=== PATIENT | male | born 1975 | race African-American/Black ===

== ENCOUNTER 2016-06-26 18:41 | Emergency (ER) | payer SELFPAY ==
[2016-06-26] MEDS ORDERED: Sodium Chloride 0.9% 1,000 ML IV ONE (19:13)
--- NOTE | 2016-06-26 19:27 | EDM.PDOC ---
ED HPI GENERAL MEDICAL PROBLEM - General Chief Complaint: Flank Pain Stated Complaint: KIDNEY PAIN Time Seen by Provider: 06/26/16 19:15 Source of Information: Reports: Patient History Limitations: Reports: No limitations - History of Present Illness INITIAL COMMENTS - FREE TEXT/NARRATIVE: History of present illness: [40-year-old male comes in complaining of bilateral flank pain indicated that it started going to the back and has gotten worse. Also indicates that his urine is very concentrated.] Review of systems: As per history of present illness and below otherwise all systems reviewed and negative. Past medical history: As per history of present illness and as reviewed below otherwise noncontributory. Surgical history: As per history of present illness and as reviewed below otherwise noncontributory. Social history: No reported history of drug or alcohol abuse. Family history: As per history of present illness and as reviewed below otherwise noncontributory. Physical exam: HEENT: Atraumatic, normocephalic, pupils reactive, negative for conjunctival pallor or scleral icterus, mucous membranes moist, throat clear, neck supple, nontender, trachea midline. Lungs: Clear to auscultation, breath sounds equal bilaterally, chest nontender. Heart: S1S2, regular, negative for clicks, rubs, or JVD. Abdomen: Soft, nondistended, nontender. Negative for masses or hepatosplenomegaly. Negative for costovertebral tenderness. Pelvis: Stable nontender. Genitourinary: Deferred. Rectal: Deferred. Extremities: Atraumatic, negative for cords or calf pain. Neurovascular unremarkable. Neuro: Awake, alert, oriented. Cranial nerves II through XII unremarkable. Cerebellum unremarkable. Motor and sensory unremarkable throughout. Exam nonfocal. Diagnostics: [EC, CMP, troponin, CT of abdomen without contrast] Therapeutics: [] Impression: [Low back pain] Plan: [Muscle relaxers person steroids OTC pain meds] Definitive disposition and diagnosis as appropriate pending reevaluation and review of above. bilateral flank Pain Score (Numeric/FACES): 8 - Related Data Allergies Allergy/AdvReac Type Severity Reaction Status Date / Time No Known Allergies Allergy Verified 06/26/16 19:07 Home Meds: Home Meds Orphenadrine [Norflex] 100 mg PO BID #28 tab.er 06/26/16 [Rx] methylPREDNISolone [Medrol] 4 mg PO DAILY #21 tab.ds.pk 06/26/16 [Rx] ED ROS GENERAL - Review of Systems Review Of Systems: See Below (See history of present illness) ED EXAM, GENERAL - Physical Exam Exam: See Below (See history of present illness) Course - Vital Signs Last Recorded V/S: Last Vital Signs Temp 36.1 C 06/26/16 19:08 Pulse 102 H 06/26/16 19:08 Resp 16 06/26/16 19:08 BP 147/76 H 06/26/16 19:08 Pulse Ox 100 06/26/16 19:08 - Orders/Labs/Meds Orders: Active Orders 24 hr Category Date Time Status Abdomen Pelvis w Cont [CT] Stat Exams 06/26/16 19:49 Stop Req Abdomen Pelvis wo Cont [CT] Stat Exams 06/26/16 19:55 Taken Labs: Laboratory Tests 06/26/16 06/26/16 06/26/16 Range/Units 19:10 19:15 19:15 WBC 7.65 (4.0-11.0) K/uL RBC 5.23 (4.50-5.90) M/uL Hgb 15.9 (13.0-17.0) g/dL Hct 46.1 (38.0-50.0) % MCV 88.1 (80.0-98.0) fL MCH 30.4 (27.0-32.0) pg MCHC 34.5 (31.0-37.0) g/dL RDW Std Deviation 41.1 (28.0-62.0) fl RDW Coeff of Lila 13 (11.0-15.0) % Plt Count 244 (150-400) K/uL MPV 10.30 (7.40-12.00) fL Neut % (Auto) 35.6 L (48.0-80.0) % Lymph % (Auto) 50.6 H (16.0-40.0) % Power % (Auto) 12.3 (0.0-15.0) % Eos % (Auto) 1.4 (0.0-7.0) % Baso % (Auto) 0.1 (0.0-1.5) % Neut # (Auto) 2.7 (1.4-5.7) K/uL Lymph # (Auto) 3.9 H (0.6-2.4) K/uL Power # (Auto) 0.9 H (0.0-0.8) K/uL Eos # (Auto) 0.1 (0.0-0.7) K/uL Baso # (Auto) 0.0 (0.0-0.1) K/uL Nucleated RBC % 0.0 /100WBC Nucleated RBCs # 0 K/uL Sodium 139 (136-146) mmol/L Potassium 4.1 (3.5-5.1) mmol/L Chloride 107 (98-110) mmol/L Carbon Dioxide 22 (21-31) mmol/L BUN 12 (6.0-23.0) mg/dL Creatinine 1.1 (0.6-1.5) mg/dL Est Cr Clr Drug Dosing 93.09 mL/min Estimated GFR (MDRD) > 60.0 ml/min Glucose 146 H (60-110) mg/dL Calcium 9.7 (8.8-10.8) mg/dL Total Bilirubin 0.3 (0.1-1.5) mg/dL AST 28 (5-40) IU/L ALT 60 H (8-54) IU/L Alkaline Phosphatase 107 (40-150) Troponin I (0.0-0.29) NG/ML Total Protein 7.9 (6.0-8.0) g/dL Albumin 4.5 (3.5-5.0) g/dL Globulin 3.4 (2.0-3.5) g/dL Albumin/Globulin Ratio 1.3 (1.3-2.8) Urine Color YELLOW Urine Appearance CLEAR Urine pH 6.5 (5.0-8.0) Ur Specific Brandon 1.020 (1.001-1.035) Urine Protein NEGATIVE (NEGATIVE) mg/dL Urine Glucose (UA) NEGATIVE (NEGATIVE) mg/dL Urine Ketones NEGATIVE (NEGATIVE) mg/dL Urine Occult Blood NEGATIVE (NEGATIVE) Urine Nitrite NEGATIVE (NEGATIVE) Urine Bilirubin NEGATIVE (NEGATIVE) Urine Urobilinogen 1.0 (<2.0) EU/dL Ur Leukocyte Esterase NEGATIVE (NEGATIVE) Urine RBC 0-1 (0-2/HPF) Urine WBC 0-1 (0-5/HPF) Ur Epithelial Cells RARE (NONE-FEW) Urine Bacteria FEW (NEGATIVE) 04/17/17 Range/Units 19:16 WBC (4.0-11.0) K/uL RBC (4.50-5.90) M/uL Hgb (13.0-17.0) g/dL Hct (38.0-50.0) % MCV (80.0-98.0) fL MCH (27.0-32.0) pg MCHC (31.0-37.0) g/dL RDW Std Deviation (28.0-62.0) fl RDW Coeff of Lila (11.0-15.0) % Plt Count (150-400) K/uL MPV (7.40-12.00) fL Neut % (Auto) (48.0-80.0) % Lymph % (Auto) (16.0-40.0) % Power % (Auto) (0.0-15.0) % Eos % (Auto) (0.0-7.0) % Baso % (Auto) (0.0-1.5) % Neut # (Auto) (1.4-5.7) K/uL Lymph # (Auto) (0.6-2.4) K/uL Power # (Auto) (0.0-0.8) K/uL Eos # (Auto) (0.0-0.7) K/uL Baso # (Auto) (0.0-0.1) K/uL Nucleated RBC % /100WBC Nucleated RBCs # K/uL Sodium (136-146) mmol/L Potassium (3.5-5.1) mmol/L Chloride (98-110) mmol/L Carbon Dioxide (21-31) mmol/L BUN (6.0-23.0) mg/dL Creatinine (0.6-1.5) mg/dL Est Cr Clr Drug Dosing mL/min Estimated GFR (MDRD) ml/min Glucose (60-110) mg/dL Calcium (8.8-10.8) mg/dL Total Bilirubin (0.1-1.5) mg/dL AST (5-40) IU/L ALT (8-54) IU/L Alkaline Phosphatase (40-150) Troponin I < 0.10 (0.0-0.29) NG/ML Total Protein (6.0-8.0) g/dL Albumin (3.5-5.0) g/dL Globulin (2.0-3.5) g/dL Albumin/Globulin Ratio (1.3-2.8) Urine Color Urine Appearance Urine pH (5.0-8.0) Ur Specific Brandon (1.001-1.035) Urine Protein (NEGATIVE) mg/dL Urine Glucose (UA) (NEGATIVE) mg/dL Urine Ketones (NEGATIVE) mg/dL Urine Occult Blood (NEGATIVE) Urine Nitrite (NEGATIVE) Urine Bilirubin (NEGATIVE) Urine Urobilinogen (<2.0) EU/dL Ur Leukocyte Esterase (NEGATIVE) Urine RBC (0-2/HPF) Urine WBC (0-5/HPF) Ur Epithelial Cells (NONE-FEW) Urine Bacteria (NEGATIVE) Meds: Medications Discontinued Medications Generic Name Dose Route Start Last Admin Trade Name Freq PRN Reason Stop Dose Admin Sodium Chloride 1,000 mls @ 999 mls/hr 06/26/16 19:13 06/26/16 19:30 Normal Saline IV 06/26/16 20:13 999 mls/hr STAT ONE Administration Ketorolac Tromethamine 30 mg 06/26/16 20:05 Toradol IVPUSH 06/26/16 20:06 ONETIME ONE Morphine Sulfate 2 mg 06/26/16 20:05 Morphine IVPUSH 06/26/16 20:06 ONETIME ONE Ondansetron HCl 8 mg 06/26/16 20:05 Zofran IVPUSH 06/26/16 20:06 ONETIME ONE Departure - Departure Time of Disposition: 20:33 Disposition: Home, Self-Care 01 Condition: good Clinical Impression: Low back pain Prescriptions: Orphenadrine [Norflex] 100 mg PO BID #28 tab.er methylPREDNISolone [Medrol] 4 mg PO DAILY #21 tab.ds.pk Forms: ED Department Discharge Additional Instructions: The following information is given to patients seen in the emergency department who are being discharged to home. This information is to outline your options for follow-up care. We provide all patients seen in our emergency department with a follow-up referral. The need for follow-up, as well as the timing and circumstances, are variable depending upon the specifics of your emergency department visit. If you don't have a primary care physician on staff, we will provide you with a referral. We always advise you to contact your personal physician following an emergency department visit to inform them of the circumstance of the visit and for follow-up with them and/or the need for any referrals to a consulting specialist. The emergency department will also refer you to a specialist when appropriate. This referral assures that you have the opportunity for follow-up care with a specialist. All of these measure are taken in an effort to provide you with optimal care, which includes your follow-up. Under all circumstances we always encourage you to contact your private physician who remains a resource for coordinating your care. When calling for follow-up care, please make the office aware that this follow-up is from your recent emergency room visit. If for any reason you are refused follow-up, please contact the [facility] Emergency Department at and asked to speak to the emergency department charge nurse. Take medication as directed Follow Up with PCP 1-2 day Return to ED as needed as discussed - My Orders Last 24 Hours: My Active Orders 06/26/16 19:49 Abdomen Pelvis w Cont [CT] Stat 06/26/16 19:55 Abdomen Pelvis wo Cont [CT] Stat - Assessment/Plan Last 24 Hours: My Active Orders 06/26/16 19:49 Abdomen Pelvis w Cont [CT] Stat 06/26/16 19:55 Abdomen Pelvis wo Cont [CT] Stat
[2016-06-26 19:45] LABS: CHLORIDE,CL 107 mmol/L (98-110); SODIUM,NA 139 mmol/L (136-146)
[2016-06-26] MEDS ORDERED: Ondansetron 4 MG/2 ML SDV IVPUSH ONE (20:05)
[2016-06-26] MEDS ORDERED: Morphine 2 MG/ML Syringe IVPUSH ONE (20:05)
[2016-06-26] MEDS ORDERED: Ketorolac 30 MG/ML SDV IVPUSH ONE (20:05)
[2016-06-27 04:19] VITALS: BP 133/70
--- NOTE | 2016-06-27 11:13 | CT ---
EXAM DATE: 06/26/16 PATIENT'S AGE: 40 Patient: CHARLEY SCOTT Facility: [place], [place] Site . Site : [id number] Study: CT Abdomen/Pelvis [id number]/[id number] 8:14:07 PM Ordering Physician: Doctor Schreiber Final Report: HISTORY: Left flank pain for a week. Technique: CT abdomen and pelvis without contrast. Comparison: None. Findings: Urinary tract: No renal or ureteral calculi. No hydronephrosis. No perinephric stranding. No bladder calculi. Abdomen: Diffusely decreased attenuation of the liver consistent with fatty infiltration. Unenhanced pancreas, spleen, gallbladder, and adrenal glands are unremarkable. No dilated bowel. Appendix is normal. No ascites. No free intraperitoneal gas. No lymphadenopathy. No abdominal aortic aneurysm. Mild iliac atherosclerotic calcification. Pelvis: No free fluid. No lymphadenopathy. Musculoskeletal: No acute findings. Disc and facet degenerative changes at L5- S1. lower chest: Lung bases are clear. Impression: 1. No acute findings in the abdomen or pelvis. 2. No urinary tract calculus or hydronephrosis. 3. Fatty infiltration of the liver. Dictated by Laci Richardson MD @ Jun 26 2016 8:25PM (Electronic Signature) Report Signed by Proxy and Original Signed Document filed in the Medical Record. MTDD
== END 2016-06-26 21:20 | disposition home or self-care (01) ==
LOC: MW.ED 18:41
DX: M54.5 Low back pain (principal); Z79.899 Other long term (current) drug therapy
CPT/HCPCS: 36415; 74176; 80053; 81001; 84484; 85025; 96361; 96374; 96375; 99284; J1885; J2405; J7040